=== PATIENT | female | born 1980 | race Two or more races ===

== ENCOUNTER 2018-09-28 17:01 | Emergency (ER) | payer BC, OTHER ==
[~2018-09-28] VITALS: Ht 162.6 cm; Wt 74.4 kg
--- NOTE | 2018-09-28 17:23 | NUR ---
Patient discharged to home in stable conditon. Written and verbal after care instructions given to patient. Patient verbalizes understanding of instructions.
== END 2018-09-28 17:25 | disposition home or self-care (01) ==
LOC: ER 17:04
DX: H10.89 Other conjunctivitis (principal); B96.89 Other specified bacterial agents as the cause of diseases classified elsewhere
CPT/HCPCS: A4663

== ENCOUNTER 2019-08-06 09:27 | Emergency (ER) | payer BC, OTHER ==
[~2019-08-06] VITALS: Ht 162.6 cm; Wt 70.3 kg
--- NOTE | 2019-08-06 09:57 | NUR ---
PT WAS EVALUATED BY DR SIN. PT WAS D/C'd TO HOME AFTER ER MD EVALUATION. D/C INSTRUCTIONS GIVEN TO THE PT.
[2019-08-06 10:01] VITALS: BP 128/75
== END 2019-08-06 10:02 | disposition home or self-care (01) ==
LOC: ER 09:27
DX: L25.9 Unspecified contact dermatitis, unspecified cause (principal)